=== PATIENT | female | born 1960 | race Caucasian/White ===

== ENCOUNTER 2016-12-08 04:48 | Day surgery (SDC) | payer OTHER ==
[~2016-12-08] VITALS: Ht 170.2 cm; Wt 90.3 kg
[~2016-12-08 04:48] MED LIST: BENICAR20 PO; CALTRAT600 PO; CELEBREX2 PO; CELEXA40 MG PO; EDARBI40 MG PO; FISH-EPA1000 MG PO; FLOMAX4 PO; MAXALT10 MG PO; MERIBIN5 MG PO; MIRAPEX250 PO; MSCONT15 PO; MULTIPLE VIT PO; NASACORTAQ NAS; NASONEX NAS; NEUR800 PO; NORCO1 TAB PO; PATADAY OPH; PCET PO; PREV30 PO; PROTONIX PO; REFRESH OPH SO0.3 ML OPH; RYZOLT PO; SINGULAIR1 PO; TOPAMAX25 PO; ULTRAM50 PO; V5 PO; VITAMIN B-121000 MC1 SL; VITAMIN B-122500 MCG SL; VITAMIN K PO; XALAT OPH; XYZAL5 MG PO; ZOMIG5 MG PO; [UNRECOGNIZED DRUG - REMARK] PO
== END 2016-12-08 08:34 | disposition home or self-care (01) ==
LOC: SDC 04:48
PROVIDERS: Orthopaedic Surgery
PROC: 3E0R3BZ Introduction of Anesthetic Agent into Spinal Canal, Percutaneous Approach (ICD-10-PCS; 2016-12-08)
PROC: B01BZZZ Fluoroscopy of Spinal Cord (ICD-10-PCS; 2016-12-08)
PROC: 3E0R33Z Introduction of Anti-inflammatory into Spinal Canal, Percutaneous Approach (ICD-10-PCS; principal; 2016-12-08 07:15)
DX: M54.16 Radiculopathy, lumbar region (principal); Z79.899 Other long term (current) drug therapy; Z88.8 Allergy status to other drugs, medicaments and biological substances; Z90.710 Acquired absence of both cervix and uterus; Z98.51 Tubal ligation status; Z90.49 Acquired absence of other specified parts of digestive tract; Z98.890 Other specified postprocedural states
CPT/HCPCS: J1040; J2250; J3010; Q9967